=== PATIENT | female | born 1990 | race American Indian/Alaskan Native ===

== ENCOUNTER 2018-01-06 09:27 | Emergency (ER) | payer OTHER ==
[2018-01-06 11:27] LABS: Basophils # (Auto) 0.1 K/mm3 (0.0-0.1); Basophils % (Auto) 0.4 % (0.0-1.8); Hemoglobin 12.7 gm/dl (10.1-14.3); Lymphocytes % (Auto) 13.4 % (13.4-35.0); Mean Corpuscular HGB Conc 34 % (30-34); Mean Corpuscular Hemoglobin 29 pg (28-32); Mean Corpuscular Volume 83 fl (79-97); Monocytes # (Auto) 1.3 K/mm3 (0.0-0.8); Monocytes % (Auto) 8.7 % (0.0-7.3); Platelet Count 396 K/mm3 (140-440); Red Blood Count 4.46 M/mm3 (3.65-5.03); Red Cell Distribution Width 16.4 % (13.2-15.2)
[2018-01-06 11:42] LABS: Alanine Aminotransferase 59 units/L (7-56); Albumin 4.6 g/dL (3.9-5); BUN/Creatinine Ratio 8; Blood Urea Nitrogen 4 mg/dL (7-17); Calcium 9.9 mg/dL (8.4-10.2); Hemolysis Index 40
[2018-01-06 12:21] LABS: Bacteria,Urine 1+ /HPF (Negative); Bilirubin,Urine NEG (Negative); Blood,Urine SM (Negative); Color,Urine Straw (Yellow); Nitrite,Urine NEG (Negative); Protein,Urine <15 mg/dL mg/dL (Negative); Urobilinogen,Urine < 2.0 mg/dL (<2.0)
[2018-01-06 12:27] LABS: HCG Qualitative,Urine Negative (Negative)
[2018-01-06] MEDS ORDERED: NACL 0.9% 1000 ML 1,000 ML IV ONE (12:35)
[2018-01-06] MEDS ORDERED: ZOFRAN IV ONE (12:35)
[2018-01-06] MEDS ORDERED: BENTYL IM ONE (12:36)
[2018-01-06] MEDS ORDERED: PEPCID IV ONE (12:36)
[2018-01-06] MEDS ORDERED: KCL 10MEQ/100ML 10 MEQ/100 ML BAG IV ONE (12:37)
--- NOTE | 2018-01-06 12:42 | Emergency Department Report ---
Blank Doc - Documentation Documentation: Chest 27-year-old [place] female who's had 3 days of nausea vomiting. Patient states on day one and there was diarrhea as well. Patient is having crampy abdominal discomfort as well. Patient denies any fevers chills this time. Patient will be moved to a treatment room for further evaluation and LP as well as IV fluids and nausea medicines and a CT abdomen and pelvis
[2018-01-06] MEDS ORDERED: NACL ONE (13:11)
--- NOTE | 2018-01-06 13:17 | Emergency Department Report ---
ED N/V/D HPI - General Chief complaint: Nausea/Vomiting/Diarrhea Stated complaint: NAUSEA/VOMITING X 3DAYS Time Seen by Provider: 01/06/18 12:24 Source: patient Mode of arrival: Ambulatory Limitations: No Limitations - History of Present Illness Initial comments: This is a 27-year-old female nontoxic, well nourished in appearance, no acute signs of distress presents to the ED with c/o of nausea, vomiting, and abdominal cramping x3 days. Patient stated she wake up 3 days ago with nausea and then started to have vomiting later that day. Patient describes abdominal as cramping sensation but denies any pain or radiation of cramping. Patient stated had a diarrhea episode as well. Patient stated she has been able to drink 7-8 bottles of water but stated gets very nauseous when eating and and vomiting. Patient denies any chest pain, shortness of breathe, fever, chills, headache, stiff neck, headache, numbness, tingling, back pain. Patient denies any drug allergies or PMH. MD complaint: nausea, vomiting, diarrhea -: days(s) (3) Description of Vomiting: food contents Description of Diarrhea: water Associated Abdominal Pain: Yes (cramping) Location: diffuse Radiation: none Severity: mild Pain Scale: 3 Quality: cramping Consistency: constant Improves with: none Worsens with: none Associated Symptoms: denies other symptoms. denies: myalgias, chest pain, cough , diaphoresis, fever/chills, headaches, loss of appetite, malaise, nausea/ vomiting, rash, dysuria, shortness of breath, syncope, weakness - Related Data Previous Rx's Medication Instructions Recorded Last Taken Type Ibuprofen [Motrin] 600 mg PO Q8H PRN #20 tablet 12/09/14 Unknown Rx Polyethylene Glycol 3350 [Miralax 17 gm PO DAILY #1 bottle 12/09/14 Unknown Rx 3350] Ondansetron [Zofran Odt] 4 mg PO Q8HR #30 tab.rapdis 01/06/18 Unknown Rx Allergies Allergy/AdvReac Type Severity Reaction Status Date / Time No Known Allergies Allergy Unverified 12/09/14 03:45 ED Review of Systems ROS: Stated complaint: NAUSEA/VOMITING X 3DAYS Other details as noted in HPI Constitutional: denies: chills, fever Eyes: denies: eye pain, eye discharge, vision change ENT: denies: ear pain, throat pain Respiratory: denies: cough, shortness of breath, wheezing Cardiovascular: denies: chest pain, palpitations Endocrine: no symptoms reported Gastrointestinal: abdominal pain, nausea, vomiting, diarrhea Genitourinary: denies: urgency, dysuria, discharge Musculoskeletal: denies: back pain, joint swelling, arthralgia Skin: denies: rash, lesions Neurological: denies: headache, weakness, paresthesias Psychiatric: denies: anxiety, depression Hematological/Lymphatic: denies: easy bleeding, easy bruising ED Past Medical Hx - Past Medical History Previous Medical History?: No - Surgical History Past Surgical History?: No - Social History Smoking Status: Current Some Day Smoker Substance Use Type: Marijuana, Non Opiate Pain, Other - Medications Home Medications: Home Medications Medication Instructions Recorded Confirmed Last Taken Type Ibuprofen [Motrin] 600 mg PO Q8H PRN #20 tablet 12/09/14 Unknown Rx Polyethylene Glycol 3350 [Miralax 17 gm PO DAILY #1 bottle 12/09/14 Unknown Rx 3350] Ondansetron [Zofran Odt] 4 mg PO Q8HR #30 tab.rapdis 01/06/18 Unknown Rx ED Physical Exam - General Limitations: No Limitations General appearance: alert, in no apparent distress - Head Head exam: Present: atraumatic, normocephalic - Eye Eye exam: Present: normal appearance, PERRL, EOMI Pupils: Present: normal accommodation - ENT ENT exam: Present: normal exam, normal orophraynx, mucous membranes moist, TM's normal bilaterally, normal external ear exam - Neck Neck exam: Present: normal inspection, full ROM. Absent: tenderness, meningismus, lymphadenopathy, thyromegaly - Respiratory Respiratory exam: Present: normal lung sounds bilaterally. Absent: respiratory distress, wheezes, rales, rhonchi, stridor, chest wall tenderness, accessory muscle use, decreased breath sounds, prolonged expiratory - Cardiovascular Cardiovascular Exam: Present: regular rate, normal rhythm, normal heart sounds. Absent: bradycardia, tachycardia, irregular rhythm, systolic murmur, diastolic murmur, rubs, gallop - GI/Abdominal GI/Abdominal exam: Present: soft, normal bowel sounds. Absent: distended, tenderness, guarding, rebound, rigid, diminished bowel sounds - Expanded GI/Abdominal Exam Expanded GI/Abdominal exam: Absent: psoas sign, obturator sign, heel tap sign, Juárez's sign, Rovsing's sign, tenderness at Mcburney's Point, ascites - Rectal Rectal exam: Present: deferred - Extremities Exam Extremities exam: Present: normal inspection, full ROM, normal capillary refill. Absent: tenderness, pedal edema, joint swelling, calf tenderness - Back Exam Back exam: Present: normal inspection, full ROM. Absent: tenderness, CVA tenderness (R), CVA tenderness (L), muscle spasm, paraspinal tenderness, vertebral tenderness, rash noted - Neurological Exam Neurological exam: Present: alert, oriented X3, CN II-XII intact, normal gait, reflexes normal - Psychiatric Psychiatric exam: Present: normal affect, normal mood - Skin Skin exam: Present: warm, dry, intact, normal color. Absent: rash ED Course Vital Signs 01/06/18 01/06/18 10:25 14:59 Temperature 98.3 F Pulse Rate 78 65 Respiratory 18 18 Rate Blood Pressure 112/77 105/78 O2 Sat by Pulse 99 100 Oximetry - Reevaluation(s) Reevaluation #1: 01/06/18 13:19 Patient is speaking in full sentences with no signs of distress noted. - Consultations Consultation #1: 01/06/18 13:19 Patient has been consulted with Dr. Bansal about patient history, physical exam , and labs and examined and screened patient and agrees to ED plan of care and discharge plan of care. ED Medical Decision Making - Lab Data Result diagrams: 01/06/18 11:00 01/06/18 11:00 - Medical Decision Making This is a 27-year-old female that presents with nausea, vomiting, and abdominal pain. Patient is stable and was examined by me and Dr. Bansal. CT of abdomen/ pelvic obtained and dictated by radiologist with no acute changes. Patient is notified of xray results with no questions noted by the patient. Patient received 1L of NS and Zofran and stated symptoms of nausea and vomiting subsided. Patient also received K+ 10 meq IV. Labs obtained with no acute abnormalities. A PO challenge has been obtained and patient tolerated well with no signs of nausea or vomiting. Patient stated she feels much better. Patient is discharged with zofran. Patient was instructed to Follow-up with a primary care doctor in 3-5 days or if symptoms worsen and continue return to emergency room as soon as possible. At time of discharge, the patient does not seem toxic or ill in appearance. No acute signs of distress noted. Patient agrees to discharge treatment plan of care. No further questions noted by the patient. Critical care attestation.: If time is entered above; I have spent that time in minutes in the direct care of this critically ill patient, excluding procedure time. ED Disposition Clinical Impression: Hypokalemia Nausea & vomiting Qualifiers: Vomiting type: unspecified Vomiting Intractability: non-intractable Qualified Code(s): R11.2 - Nausea with vomiting, unspecified Abdominal pain Qualifiers: Abdominal location: generalized Qualified Code(s): R10.84 - Generalized abdominal pain Disposition: TO HOME OR SELFCARE Is pt being admited?: No Does the pt Need Aspirin: No Condition: Stable Instructions: Ondansetron (By mouth), Electrolyte Supplement (By mouth), Acute Nausea and Vomiting (ED), Acute Abdominal Pain (ED) Additional Instructions: Follow-up with a primary care doctor in 3-5 days or if symptoms worsen and continue return to emergency room as soon as possible. Increase hydration as much as possible Prescriptions: Ondansetron [Zofran Odt] 4 mg PO Q8HR #30 tab.rapdis Referrals: PRIMARY CAREMD [Primary Care Provider] - 3-5 Days PLACIDO PAIGE MD [Staff Physician] - 3-5 Days [facility] [place] [Outside] - 3-5 Days [facility] [Outside] - 3-5 Days Forms: Work/School Release Form(ED)
--- NOTE | 2018-01-06 14:18 | Cat Scan Report ---
CT ABDOMEN AND PELVIS WITH CONTRAST INDICATION: Nausea, vomiting, diarrhea. COMPARISON: 12/09/2014. FINDINGS: Abdomen and pelvis CT performed following intravenous administration of 100 cc of Omnipaque 300. LUNG BASES: Mild air-filled nonspecific distal esophageal wall prominence/thickening. ABDOMEN: Liver, spleen, gallbladder, pancreas, adrenals, aorta, IVC and kidneys within normal limits. Retroaortic left renal vein incidentally noted. No ascites or size significant adenopathy. Nonopacified GI tract evaluation limited, though grossly nonobstructive. Mild ascending and transverse colon stool. Umbilical ornament creates streak artifact, limiting exam. PELVIS: Small simple attenuation pelvic free fluid, most likely physiologic as also CT appearance of the uterus, adnexa and ovaries. Unremarkable rectosigmoid and the urinary bladder. No significant adenopathy. Unremarkable bones. CONCLUSION: No acute CT abnormality with few incidental findings, as above. Thank you for the opportunity to participate in this patient's care.
[2018-01-06 15:04] VITALS: BP 105/78
[2018-01-06] MEDS ORDERED: KCL 10 MEQ in NACL 0.9% 100 ML IV ONE (15:30)
== END 2018-01-06 16:23 | disposition home or self-care (01) ==
LOC: ED 09:27
DX: E87.6 Hypokalemia (principal); R11.2 Nausea with vomiting, unspecified; R10.84 Generalized abdominal pain; R19.7 Diarrhea, unspecified; F17.200 Nicotine dependence, unspecified, uncomplicated; F12.10 Cannabis abuse, uncomplicated
CPT/HCPCS: 36415; 74177; 80053; 81001; 81025; 85025; 96361; 96365; 96372; 96375; 99284; J0500; J2405; J3480; J7030; Q9967

== ENCOUNTER 2022-04-24 19:44 | Emergency (ER) | payer OTHER | END 2022-04-24 20:12 | disposition left against medical advice (07) | LOC: ED 19:44 | DX: S09.90XA Unspecified injury of head, initial encounter (principal); Z53.21 Procedure and treatment not carried out due to patient leaving prior to being seen by health care provider; X58.XXXA Exposure to other specified factors, initial encounter; Y93.89 Activity, other specified; Y92.89 Other specified places as the place of occurrence of the external cause; Y99.8 Other external cause status ==